=== PATIENT | male | born 1970 | race Caucasian/White ===

== ENCOUNTER 2019-08-08 00:17 | Emergency (ER) | payer OTHER ==
[2019-08-08] MEDS ORDERED: Azithromycin 250 MG Tab PO ONE (00:18)
[2019-08-08] MEDS ORDERED: Albuterol 8 GM Inhaler INH ONE (00:18)
[2019-08-08] MEDS ORDERED: Sodium Chloride 0.9% 10 ML Syringe FLUSH PRN (00:25)
[2019-08-08] MEDS ORDERED: Ketorolac 30 MG/ML SDV IVPUSH ONE (00:26)
[2019-08-08] MEDS ORDERED: Sodium Chloride 0.9% 1,000 ML IV SCH (00:30)
[2019-08-08] MEDS ORDERED: Albuterol 0.083% 2.5 MG/3 ML Neb Soln NEB ONE (00:34)
--- NOTE | 2019-08-08 00:34 | EDM.PDOC ---
ED HPI GENERAL MEDICAL PROBLEM - General Chief Complaint: Respiratory Problem Stated Complaint: cough Time Seen by Provider: 08/08/19 00:20 Source of Information: Reports: Patient, Family History Limitations: Reports: No Limitations - History of Present Illness INITIAL COMMENTS - FREE TEXT/NARRATIVE: diagnosed with influenza on saturday seen this afternoon in the clinic and now complaining of still having fever , chest discomfort, cough , and weakness has been on Tamiflu was given robitussin with codeine earlier today has been working still since diagnosis of influenza Onset: Today Onset Date: 08/04/19 Location: Reports: Chest Quality: Reports: Ache, Burning Improves with: Reports: Medication, Rest Worsens with: Reports: Other (cough) Context: Reports: Sick Contact Associated Symptoms: Reports: Chest Pain, Cough, Fever/Chills, Headaches, Loss of Appetite, Malaise, Weakness - Related Data Allergies Allergy/AdvReac Type Severity Reaction Status Date / Time No Known Allergies Allergy Verified 08/08/19 00:50 Home Meds: Home Meds Oseltamivir [Tamiflu] 75 mg PO ASDIRECTED 08/08/19 [History] guaiFENesin/Codeine Phosphate [Guaiatussin AC Liquid] 10 ml PO ASDIRECTED [History] ED ROS GENERAL - Review of Systems Review Of Systems: See Below Constitutional: Reports: Fever, Chills, Malaise, Weakness, Fatigue, Night Sweats , Diaphoresis, Decreased Appetite HEENT: Reports: Rhinitis, Throat Pain, Throat Swelling Respiratory: Reports: Wheezing, Cough, Sputum Cardiovascular: Reports: No Symptoms Endocrine: Reports: No Symptoms GI/Abdominal: Reports: No Symptoms : Reports: No Symptoms Musculoskeletal: Reports: No Symptoms Skin: Reports: No Symptoms Neurological: Reports: No Symptoms Psychiatric: Reports: No Symptoms Hematologic/Lymphatic: Reports: No Symptoms ED EXAM, GENERAL - Physical Exam Exam: See Below Exam Limited By: No Limitations General Appearance: Alert, Lethargic, Other (ill looking) Eye Exam: Bilateral Eye: EOMI Ears: Normal External Exam Ear Exam: Bilateral Ear: Auricle Normal Nose: Nasal Swelling, Nasal Drainage, Clear Rhinorrhea Throat/Mouth: Inflammation Head: Atraumatic Neck: Supple, Non-Tender Respiratory/Chest: Decreased Breath Sounds, Rales, Wheezing Cardiovascular: Regular Rate, Rhythm GI/Abdominal: Soft, Non-Tender Neurological: Alert, Oriented, CN II-XII Intact, Abnormal Reflexes Skin Exam: Warm Course - Vital Signs Last Recorded V/S: Last Vital Signs Temp 37.1 C 08/08/19 01:55 Pulse 106 H 08/08/19 01:55 Resp 18 08/08/19 01:55 BP 114/69 08/08/19 01:55 Pulse Ox 95 08/08/19 01:55 - Orders/Labs/Meds Orders: Active Orders 24 hr Category Date Time Status RT Aerosol Therapy [RC] ASDIRECTED Care 08/08/19 00:34 Active Chest 2V [CR] Stat Exams 08/08/19 00:27 Taken Sodium Chloride 0.9% [Normal Saline] 1,000 ml Med 08/08/19 00:30 Active IV ASDIRECTED Sodium Chloride 0.9% [Saline Flush] Med 08/08/19 00:25 Active 10 ml FLUSH ASDIRECTED PRN Peripheral IV Insertion Adult [OM.PC] Routine Oth 08/08/19 00:25 Ordered Medication Orders Sodium Chloride (Normal Saline) 1,000 mls @ 999 mls/hr IV ASDIRECTED AJITH Last Admin: 08/08/19 00:30 Dose: 999 mls/hr Sodium Chloride (Saline Flush) 10 ml FLUSH ASDIRECTED PRN PRN Reason: Keep Vein Open Last Admin: 08/08/19 00:25 Dose: 10 ml Labs: Laboratory Tests 08/08/19 08/08/19 08/08/19 Range/Units 00:36 00:36 00:36 WBC 10.5 (4.5-12.0) X10-3/uL RBC 4.78 (4.30-5.75) x10(6)uL Hgb 15.0 (13.5-17.8) g/dL Hct 43.8 (30.0-51.3) % MCV 91.7 (80-96) fL MCH 31.5 (27.7-33.6) pg MCHC 34.3 (32.2-35.4) g/dL RDW 12.2 (11.5-15.5) % Plt Count 319 (125-369) X10(3)uL MPV 7.4 (7.4-10.4) fL Neut % (Auto) 64.4 (46-82) % Lymph % (Auto) 23.3 (13-37) % Chester % (Auto) 9.2 (4-12) % Eos % (Auto) 3 (1.0-5.0) % Baso % (Auto) 1 (0-2) % Neut # (Auto) 6.7 (1.6-8.3) # Lymph # (Auto) 2.4 (0.6-5.0) # Chester # (Auto) 1.0 (0.0-1.3) # Eos # (Auto) 0.3 (0.0-0.8) # Baso # (Auto) 0.1 (0.0-0.2) # Sodium 141 (135-145) mmol/L Potassium 3.3 L (3.5-5.3) mmol/L Chloride 103 (100-110) mmol/L Carbon Dioxide 30 (21-32) mmol/L BUN 8 (7-18) mg/dL Creatinine 1.1 (0.70-1.30) mg/dL Est Cr Clr Drug Dosing TNP Estimated GFR (MDRD) > 60 (>60) BUN/Creatinine Ratio 7.3 L (9-20) Glucose 97 (80-116) mg/dL Calcium 8.4 L (8.6-10.2) mg/dL C-Reactive Protein 6.5 H* (0.5-0.9) mg/dL Meds: Medications Generic Name Dose Route Start Last Admin Trade Name Freq PRN Reason Stop Dose Admin Sodium Chloride 1,000 mls @ 999 mls/hr 08/08/19 00:30 08/08/19 00:30 Normal Saline IV 999 mls/hr ASDIRECTED AJITH Administration Sodium Chloride 10 ml 08/08/19 00:25 08/08/19 00:25 Saline Flush FLUSH 10 ml ASDIRECTED PRN Administration Keep Vein Open Discontinued Medications Generic Name Dose Route Start Last Admin Trade Name Freq PRN Reason Stop Dose Admin Albuterol 2.5 mg 08/08/19 00:34 08/08/19 00:43 Proventil Neb Soln NEB 08/08/19 00:35 2.5 mg ONETIME ONE Administration Ketorolac Tromethamine 30 mg 08/08/19 00:26 08/08/19 00:43 Toradol IVPUSH 08/08/19 00:27 30 mg ONETIME ONE Administration Potassium Chloride 40 meq 08/08/19 02:11 08/08/19 02:15 Klor-Con M20 PO 08/08/19 02:12 40 meq ONETIME ONE Administration - Re-Assessments/Exams Free Text/Narrative Re-Assessment/Exam: 08/08/19 02:15 did feel better with Neb and fluids given albuterol inh and Zpak continue with all other medication s Off work till feels better Departure - Departure Time of Disposition: :20 Disposition: Home, Self-Care 01 Condition: Fair Clinical Impression: Influenza A, Bronchitis with influenza, Dehydration - Discharge Information *PRESCRIPTION DRUG MONITORING PROGRAM REVIEWED*: Not Applicable *COPY OF PRESCRIPTION DRUG MONITORING REPORT IN PATIENT JAMIE: Not Applicable Instructions: Influenza, Adult, [id number]-ax-Pprt, Acute Bronchitis, Adult, Easy-to- Read Referrals: PCP,None [Primary Care Provider] - Forms: ED Department Discharge Additional Instructions: 1) continue with all prior medications 2) use inhaler every 6hrs for at least 48hrs then as needed 3) increase fluid intake 4) No work for 3-5 days Sepsis Event Note - Focused Exam Vital Signs: Vital Signs Temp Pulse Resp BP Pulse Ox 08/08/19 01:55 37.1 C 106 H 18 114/69 95 08/08/19 00:20 37.3 C 111 H 16 122/83 99 Date Exam was Performed: 08/08/19 Time Exam was Performed: 02:23 - My Orders Last 24 Hours: My Active Orders 08/08/19 00:25 Sodium Chloride 0.9% [Saline Flush] 10 ml FLUSH ASDIRECTED PRN Peripheral IV Insertion Adult [OM.PC] Routine 08/08/19 00:27 Chest 2V [CR] Stat 08/08/19 00:30 Sodium Chloride 0.9% [Normal Saline] 1,000 ml IV ASDIRECTED 08/08/19 00:34 RT Aerosol Therapy [RC] ASDIRECTED - Assessment/Plan Last 24 Hours: My Active Orders 08/08/19 00:25 Sodium Chloride 0.9% [Saline Flush] 10 ml FLUSH ASDIRECTED PRN Peripheral IV Insertion Adult [OM.PC] Routine 08/08/19 00:27 Chest 2V [CR] Stat 08/08/19 00:30 Sodium Chloride 0.9% [Normal Saline] 1,000 ml IV ASDIRECTED 08/08/19 00:34 RT Aerosol Therapy [RC] ASDIRECTED
[2019-08-08] MEDS ORDERED: Potassium Chloride 20 MEQ Tab.ER PO ONE (02:11)
--- NOTE | 2019-08-10 10:36 | CR ---
INDICATION: Influenza. CHEST, 2 VIEWS: PA and lateral views of the chest were obtained, 08/08/19, and revealed findings compatible with obstructive airway disease - possible COPD. Dextroconvex scoliosis of the lower middle thoracic spine is mild. Heart and mediastinum are unremarkable. No consolidating pneumonia or effusion was identified. IMPRESSION: 1. No acute process. 2. Possible COPD. 3. Mild scoliosis. MTDD
== END 2019-08-08 02:30 | disposition home or self-care (01) ==
LOC: EDBD 00:17 → FB.ED 00:17
DX: J10.1 Influenza due to other identified influenza virus with other respiratory manifestations (principal); E86.0 Dehydration
CPT/HCPCS: 36415; 71046; 80048; 85025; 86140; 94640; 96361; 96374; 99284; A9270; J1885; J7030